=== PATIENT | female | born 2000 | race Hispanic/Latino ===

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

== ENCOUNTER 2020-04-27 03:13 | Emergency (ER) | payer MEDICAID ==
[2020-04-27 03:27] LABS: APPEARANCE,URINE Clear (CLEAR); BILIRUBIN,URINE Negative (NEGATIVE); COLOR,URINE Yellow (YELLOW); GLUCOSE, URINE (UA) Negative (NEGATIVE); KETONES,URINE 15 mg/dL (NEGATIVE); LEUKOCYTE ESTERASE ,URINE Negative (NEGATIVE); NITRATE,URINE Negative (NEGATIVE); OCCULT BLOOD,URINE Negative (NEGATIVE); PH,URINE 5.5 (5.0-8.0); PROTEIN,URINE Negative (NEGATIVE)
[2020-04-27 03:33] LABS: HCG,QUAL RESULT NEGATIVE (NEGATIVE)
[2020-04-27 03:34] LABS: AMPHET/METH SCREEN,URINE NEGATIVE (NEGATIVE); BARBITURATE SCREEN, URINE NEGATIVE (NEGATIVE); BENZODIAZEPINES SCREEN,URINE NEGATIVE (NEGATIVE); CANNABINOID SCREEN,URINE NEGATIVE (NEGATIVE); COCAINE SCREEN,URINE NEGATIVE (NEGATIVE); OPIATE SCREEN,URINE NEGATIVE (NEGATIVE); PHENCYCLIDINE SCREEN,URINE NEGATIVE (NEGATIVE)
[2020-04-27 03:40] LABS: BASOPHILS % (AUTO) 0.9 % (0.0-5.0); HEMATOCRIT 31.8 % (36-48); LYMPHOCYTES % (AUTO) 33.7 % (21.0-51.0); MEAN CORPUSCULAR HEMOGLOBIN 25.6 pg (27.0-33.0); MEAN CORPUSCULAR HGB CONC 31.1 g/dL (32.0-36.0); MEAN CORPUSCULAR VOLUME 82.2 fL (80-100); MONOCYTES % (AUTO) 4.9 % (3.0-13.0); NEUTROPHILS % (AUTO) 48.4 % (40.0-77.0); PLATELET COUNT (AUTO) 373 K/uL (130-400); RED BLOOD CELL COUNT(AUTO) 3.87 MIL/uL (4.00-5.50); RED CELL DISTRIBUTION WIDTH 15.2 % (11.0-15.5); WHITE BLOOD COUNT (AUTO) 9.1 K/uL (4.8-10.8)
[2020-04-27 03:51] LABS: CREATININE 0.4 mg/dL (0.5-1.5); POTASSIUM 3.2 mmol/L (3.5-5.1)
[2020-04-27 03:54] LABS: ALCOHOL, BLOOD < 3 mg/dL (0-10)
[2020-04-27 04:01] LABS: ACETAMINOPHEN < 1 mcg/mL (10-30); SALICYLATE < 2.8 mg/dL (2.8-20.0)
[2020-04-27] MEDS ORDERED: POTASSIUM BICARB/CIT AC 25 MEQ TABLET.EFF ONE (04:41)
== END 2020-04-27 12:56 | disposition home or self-care (01) ==
LOC: EDH 03:13
DX: R45.851 Suicidal ideations (principal); Z20.828 Contact with and (suspected) exposure to other viral communicable diseases; F31.9 Bipolar disorder, unspecified; F41.9 Anxiety disorder, unspecified; F43.10 Post-traumatic stress disorder, unspecified
CPT/HCPCS: 36415; 80048; 80305; 81003; 81025; 85025; 87426; 99285; G0481

== ENCOUNTER 2020-07-09 00:51 | Emergency (ER) | payer MEDICAID ==
[2020-07-09 01:36] LABS: EOSINOPHILS % (AUTO) 16.4 % (0.0-8.0); LYMPHOCYTES % (AUTO) 42.1 % (21.0-51.0); MEAN CORPUSCULAR HEMOGLOBIN 25.3 pg (27.0-33.0); MEAN CORPUSCULAR HGB CONC 31.3 g/dL (32.0-36.0); MEAN CORPUSCULAR VOLUME 80.8 fL (80-100); NEUTROPHILS % (AUTO) 35.5 % (40.0-77.0); PLATELET COUNT (AUTO) 482 K/uL (130-400); RED BLOOD CELL COUNT(AUTO) 3.96 MIL/uL (4.00-5.50); RED CELL DISTRIBUTION WIDTH 16.1 % (11.0-15.5); WHITE BLOOD COUNT (AUTO) 6.8 K/uL (4.8-10.8)
[2020-07-09 01:44] LABS: APPEARANCE,URINE Clear (CLEAR); BILIRUBIN,URINE Negative (NEGATIVE); COLOR,URINE Yellow (YELLOW); GLUCOSE, URINE (UA) Negative (NEGATIVE); KETONES,URINE Negative (NEGATIVE); LEUKOCYTE ESTERASE ,URINE Negative (NEGATIVE); NITRATE,URINE Negative (NEGATIVE); OCCULT BLOOD,URINE Trace (NEGATIVE); PROTEIN,URINE Negative (NEGATIVE)
[2020-07-09 01:46] LABS: CARBON DIOXIDE 26 mmol/L (21-32); CHLORIDE 103 mmol/L (101-111); CREATININE 0.6 mg/dL (0.5-1.5); GLOMERULAR FILTR. RATE CALC 134 mL/min (>60); GLUCOSE,RANDOM 93 mg/dL (70-105); POTASSIUM 3.8 mmol/L (3.5-5.1); SODIUM SERUM 139 mmol/L (136-145); UREA NITROGEN, BLOOD 8 mg/dL (7-18)
[2020-07-09 01:51] LABS: ACETAMINOPHEN 1 mcg/mL (10-30); ALANINE AMINOTRANSFERASE 18 U/L (12-78); ALBUMIN 4.3 g/dL (3.5-5.0); ASPARTATE AMINOTRANSFERASE 17 U/L (10-37); BILIRUBIN,TOTAL 0.2 mg/dL (0.2-1.0); SALICYLATE 4.3 mg/dL (2.8-20.0)
[2020-07-09 01:52] LABS: ALCOHOL, BLOOD < 3 mg/dL (0-10)
[2020-07-09 01:53] LABS: HCG,QUAL RESULT NEGATIVE (NEGATIVE)
[2020-07-09 01:55] LABS: BACTERIA,URINE Rare /HPF (None Seen); RBC,URINE 0-1 /HPF (0-1); SQUAMOUS EPITHELIAL CELL,UR 0-2 /HPF (0-2); WBC,URINE 0-1 /HPF (0-1)
[2020-07-09 02:39] LABS: AMPHET/METH SCREEN,URINE NEGATIVE (NEGATIVE); BARBITURATE SCREEN, URINE NEGATIVE (NEGATIVE); BENZODIAZEPINES SCREEN,URINE NEGATIVE (NEGATIVE); CANNABINOID SCREEN,URINE NEGATIVE (NEGATIVE); COCAINE SCREEN,URINE NEGATIVE (NEGATIVE); OPIATE SCREEN,URINE NEGATIVE (NEGATIVE); PHENCYCLIDINE SCREEN,URINE NEGATIVE (NEGATIVE)
== END 2020-07-09 06:15 | disposition home or self-care (01) ==
LOC: EDH 00:51
DX: R45.851 Suicidal ideations (principal); F32.9 Major depressive disorder, single episode, unspecified; F41.9 Anxiety disorder, unspecified

== ENCOUNTER 2020-12-21 09:47 | Emergency (ER) | payer MEDICAID ==
[~2020-12-21] VITALS: Ht 162.6 cm; Wt 54.4 kg
[2020-12-21] MEDS ORDERED: ONDANSETRON 4MG INJ IVP SCH (10:00)
[2020-12-21] MEDS ORDERED: PANTOPRAZOLE 40 MG/VIAL IVP SCH (10:00)
[2020-12-21] MEDS ORDERED: HYDROMORPHONE 0.5 MG SYG (0.5MG/0.5ML) IVP SCH (10:00)
[2020-12-21] MEDS ORDERED: ACETAMINOPHEN 500 MG TABLET PO SCH (10:00)
[2020-12-21] MEDS ORDERED: 0.9%NACL 1000ML 1,641 ML IV SCH (10:00)
[2020-12-21 10:11] LABS: APPEARANCE,URINE Cloudy (CLEAR); BILIRUBIN,URINE Small (NEGATIVE); COLOR,URINE Dark Yellow (YELLOW); GLUCOSE, URINE (UA) >=1000 mg/dL (NEGATIVE); KETONES,URINE Trace mg/dL (NEGATIVE); LEUKOCYTE ESTERASE ,URINE Negative (NEGATIVE); NITRATE,URINE Negative (NEGATIVE); OCCULT BLOOD,URINE Negative (NEGATIVE); PH,URINE 5.5 (5.0-8.0); PROTEIN,URINE POS 1+ mg/dL (NEGATIVE)
[2020-12-21 10:13] LABS: HCG,QUAL RESULT NEGATIVE (NEGATIVE)
[2020-12-21 10:15] VITALS: BP 107/60
[2020-12-21 10:20] LABS: BASOPHILS % (AUTO) 0.4 % (0.0-5.0); EOSINOPHILS % (AUTO) 0.6 % (0.0-8.0); HEMATOCRIT 33.2 % (36-48); MEAN CORPUSCULAR HGB CONC 31.3 g/dL (32.0-36.0); MEAN CORPUSCULAR VOLUME 76.5 fL (80-100); NEUTROPHILS % (AUTO) 78.8 % (40.0-77.0); PLATELET COUNT (AUTO) 223 K/uL (130-400); RED BLOOD CELL COUNT(AUTO) 4.34 MIL/uL (4.00-5.50); RED CELL DISTRIBUTION WIDTH 15.6 % (11.0-15.5); WHITE BLOOD COUNT (AUTO) 4.9 K/uL (4.8-10.8)
[2020-12-21 10:33] LABS: RBC,URINE 0-1 /HPF (0-1); WBC,URINE 0-1 /HPF (0-1)
[2020-12-21 10:34] LABS: BACTERIA,URINE Few /HPF (None Seen)
[2020-12-21 10:34] LABS: ALANINE AMINOTRANSFERASE 45 U/L (12-78); ALBUMIN 3.5 g/dL (3.5-5.0); ASPARTATE AMINOTRANSFERASE 59 U/L (10-37); BILIRUBIN,TOTAL 0.3 mg/dL (0.2-1.0); CARBON DIOXIDE 24 mmol/L (21-32); CHLORIDE 102 mmol/L (101-111); CREATININE 0.7 mg/dL (0.5-1.5); GLOMERULAR FILTR. RATE CALC 112 mL/min (>60); GLUCOSE,RANDOM 128 mg/dL (70-105); SODIUM SERUM 136 mmol/L (136-145); TOTAL PROTEIN, SERUM 7.7 g/dL (6.0-8.3); UREA NITROGEN, BLOOD 6 mg/dL (7-18)
[2020-12-21 10:39] LABS: POTASSIUM 2.9 mmol/L (3.5-5.1)
[2020-12-21 10:43] LABS: LIPASE < 50 U/L (114-286)
[2020-12-21 11:41] VITALS: BP 100/50
[2020-12-21] MEDS ORDERED: ONDA22I PO (12:15)
[2020-12-21] MEDS ORDERED: POTASSIUM PHOS 15 mMOL+NS250ML 250 ML IV SCH (12:30)
[2020-12-21 13:44] VITALS: BP 99/55
== END 2020-12-21 13:55 | disposition home or self-care (01) ==
LOC: EDH 09:47
DX: R10.13 Epigastric pain (principal); R11.2 Nausea with vomiting, unspecified; Z20.822 Contact with and (suspected) exposure to COVID-19; Z79.899 Other long term (current) drug therapy; Z98.84 Bariatric surgery status; Z87.19 Personal history of other diseases of the digestive system
CPT/HCPCS: 36415; 74176; 80053; 81001; 81025; 83605; 83690; 85025; 87040 ×2; 87088; 87635; 96361; 96374; 96375; 99285; C9803; J1170; J2405; J7030; S0164; C9113

== ENCOUNTER 2021-06-12 13:42 | Emergency (ER) | payer MEDICAID ==
[~2021-06-12] VITALS: Ht 162.6 cm; Wt 61.7 kg
[~2021-06-12 13:42] MED LIST changes: -DIATR MEGLU/DIATRIZOATE SODIUM 30 ML BOTTLE ONE; +ONDA22I PO
[2021-06-12] MEDS ORDERED: ACETAMINOPHEN 500 MG TABLET PO ONE (14:00)
[2021-06-12] MEDS ORDERED: 0.9%NACL 1000ML 1,000 ML IV SCH (14:00)
[2021-06-12] MEDS ORDERED: ONDANSETRON 4MG INJ IVP ONE (14:00)
[2021-06-12] MEDS ORDERED: MAG/ALUM/SIMETH 30 ML UDCUP PO ONE (14:00)
[2021-06-12 14:12] LABS: BASOPHILS % (AUTO) 0.6 % (0.0-5.0); EOSINOPHILS % (AUTO) 16.2 % (0.0-8.0); HEMATOCRIT 24.7 % (36-48); LYMPHOCYTES % (AUTO) 26.3 % (21.0-51.0); MEAN CORPUSCULAR HEMOGLOBIN 23.1 pg (27.0-33.0); MEAN CORPUSCULAR VOLUME 76.9 fL (79-99); NEUTROPHILS % (AUTO) 51.5 % (40.0-77.0); PLATELET COUNT (AUTO) 342 K/uL (130-400); RED BLOOD CELL COUNT(AUTO) 3.21 MIL/uL (4.00-5.50); RED CELL DISTRIBUTION WIDTH 15.5 % (11.0-15.5); WHITE BLOOD COUNT (AUTO) 7.8 K/uL (4.8-10.8)
[2021-06-12 14:21] LABS: APPEARANCE,URINE Cloudy (CLEAR); BILIRUBIN,URINE Negative (NEGATIVE); COLOR,URINE Yellow (YELLOW); GLUCOSE, URINE (UA) TRACE mg/dL (NEGATIVE); KETONES,URINE Trace mg/dL (NEGATIVE); LEUKOCYTE ESTERASE ,URINE Small (NEGATIVE); NITRATE,URINE Negative (NEGATIVE); OCCULT BLOOD,URINE Negative (NEGATIVE); PROTEIN,URINE Trace mg/dL (NEGATIVE)
[2021-06-12 14:27] LABS: CARBON DIOXIDE 24 mmol/L (21-32); CHLORIDE 102 mmol/L (101-111); CREATININE 0.4 mg/dL (0.5-1.5); GLOMERULAR FILTR. RATE CALC 212 mL/min (>60); GLUCOSE,RANDOM 87 mg/dL (70-105); POTASSIUM 3.3 mmol/L (3.5-5.1); SODIUM SERUM 136 mmol/L (136-145); UREA NITROGEN, BLOOD 7 mg/dL (7-18)
[2021-06-12 14:52] LABS: ALANINE AMINOTRANSFERASE 16 U/L (12-78); ALBUMIN 3.1 g/dL (3.5-5.0); ASPARTATE AMINOTRANSFERASE 15 U/L (10-37); BILIRUBIN,TOTAL 0.3 mg/dL (0.2-1.0); HCG,QUANTITATIVE 26791 mIU/mL (0-5); TOTAL PROTEIN, SERUM 6.7 g/dL (6.0-8.3)
[2021-06-12] MEDS ORDERED: POTASSIUM BICARB/CIT AC 25 MEQ TABLET.EFF PO ONE (15:00)
[2021-06-12] MEDS ORDERED: DICYCLOMINE 20MG (10MG/ML) AMP IM STA (15:08)
[2021-06-12 15:12] LABS: BACTERIA,URINE Few /HPF (None Seen); MUCUS,URINE Moderate LPF (None Seen); SQUAMOUS EPITHELIAL CELL,UR Moderate /HPF (0-2)
[2021-06-12 15:16] LABS: CRP QUANTITATIVE < 2.00 mg/L (0.00-9.0); LIPASE < 50 U/L (114-286)
[2021-06-12] MEDS ORDERED: DICYCLOMINE 20MG (10MG/ML) AMP IM ONE (15:21)
[2021-06-12] MEDS ORDERED: CEFTRIAXONE 1G VIAL ONE (15:57)
[2021-06-12] MEDS ORDERED: CEFTRIAXONE 1G VIAL IVP ONE (16:00)
[2021-06-12] MEDS ORDERED: CEPH500B PO (16:21)
[2021-06-12] MEDS ORDERED: DICY20TA2 PO (16:21)
[2021-06-12 16:32] VITALS: BP 105/60
== END 2021-06-12 16:28 | disposition home or self-care (01) ==
LOC: EDH 13:42
DX: O23.42 Unspecified infection of urinary tract in pregnancy, second trimester (principal); O99.612 Diseases of the digestive system complicating pregnancy, second trimester; K29.70 Gastritis, unspecified, without bleeding; Z79.899 Other long term (current) drug therapy; Z3A.19 19 weeks gestation of pregnancy
CPT/HCPCS: 36415; 80053; 81001; 83690; 84702; 85025; 86140; 96361; 96372; 96374; 96375; 99284; J0500; J0696; J2405

== ENCOUNTER 2021-08-26 04:32 | Observation (INO) | payer MEDICAID ==
[~2021-08-26] VITALS: Ht 152.4 cm; Wt 68.0 kg
[~2021-08-26 04:32] MED LIST changes: +CEPH500B PO; +DICY20TA2 PO
[2021-08-26] MEDS ORDERED: ONDANSETRON 4MG INJ ONE (05:19)
[2021-08-26] MEDS ORDERED: MORPHINE 2 MG SYG ONE (05:19)
[2021-08-26] MEDS ORDERED: ONDANSETRON 4MG INJ IVP ONE (05:30)
[2021-08-26] MEDS ORDERED: MORPHINE 2 MG SYG IVP ONE (05:30)
[2021-08-26 05:58] LABS: AMYLASE 72 U/L (25-115)
[2021-08-26 06:02] LABS: CREATININE 0.4 mg/dL (0.5-1.5); LIPASE 41 U/L (114-286); POTASSIUM 3.7 mmol/L (3.5-5.1)
[2021-08-26 06:06] LABS: ALBUMIN 2.8 g/dL (3.5-5.0); BILIRUBIN,TOTAL 0.4 mg/dL (0.2-1.0); TOTAL PROTEIN, SERUM 6.3 g/dL (6.0-8.3)
[2021-08-26 06:14] LABS: APPEARANCE,URINE CLEAR (CLEAR); BILIRUBIN,URINE NEGATIVE (NEGATIVE); COLOR,URINE YELLOW (YELLOW); GLUCOSE, URINE (UA) NEGATIVE (NEGATIVE); KETONES,URINE >=80 mg/dL (NEGATIVE); LEUKOCYTE ESTERASE ,URINE NEGATIVE (NEGATIVE); NITRATE,URINE NEGATIVE (NEGATIVE); OCCULT BLOOD,URINE NEGATIVE (NEGATIVE); PROTEIN,URINE NEGATIVE (NEGATIVE); UROBILINOGEN,URINE 0.2 mg/dL (0.2-1.0)
[2021-08-26 06:23] LABS: AMPHET/METH SCREEN,URINE NEGATIVE (NEGATIVE); BACTERIA,URINE Rare /HPF (None Seen); BARBITURATE SCREEN, URINE NEGATIVE (NEGATIVE); BENZODIAZEPINES SCREEN,URINE NEGATIVE (NEGATIVE); CANNABINOID SCREEN,URINE NEGATIVE (NEGATIVE); COCAINE SCREEN,URINE NEGATIVE (NEGATIVE); OPIATE SCREEN,URINE NEGATIVE (NEGATIVE); PHENCYCLIDINE SCREEN,URINE NEGATIVE (NEGATIVE); RBC,URINE None Seen /HPF (0-1); SQUAMOUS EPITHELIAL CELL,UR Few /HPF (0-2); WBC,URINE 0-1 /HPF (0-1)
[2021-08-26] MEDS ORDERED: CELESTONE SOLUSPAN 6 MG/ML 5ML VIAL ONE (06:37)
[2021-08-26] MEDS ORDERED: MAGNESIUM SULFATE 40 GM/1000 ML IV ONE (06:37)
[2021-08-26] MEDS ORDERED: MAGNESIUM 4GM PREMIX 100ML 100 ML IV ONE (06:37)
[2021-08-26] MEDS ORDERED: LABETALOL 20MG VIAL IV ONE (06:40)
[2021-08-26] MEDS: CELESTONE SOLUSPAN 6 MG/ML 5ML VIAL IM SCH (06:51)
[2021-08-26 06:59] LABS: BILIRUBIN,DIRECT 0.1 mg/dL (0.0-0.3); MAGNESIUM 1.9 mg/dL (1.80-2.40); URIC ACID 2.6 mg/dL (2.6-7.2)
[2021-08-26] MEDS ORDERED: MAGNESIUM 4GM PREMIX 100ML 100 ML IV PRN (07:00)
[2021-08-26] MEDS ORDERED: CALCIUM GLUC 1GM/10ML VIAL IV PRN (07:00)
[2021-08-26] MEDS ORDERED: MAGNESIUM SULFATE 40GM/1000ML 1,000 ML IV PRN (07:00)
[2021-08-26] MEDS ORDERED: LACTATED RINGERS 1000ML 1,000 ML IV SCH (07:00)
[2021-08-26] MEDS ORDERED: LABETALOL 20MG SYG IV ONE (07:00)
[2021-08-26] MEDS: LACTATED RINGERS 1000ML 1,000 ML IV SCH ×3 (07:51→21:30)
[2021-08-26 07:58] LABS: INR 0.95 (0.85-1.15); PROTHROMBIN TIME 10.4 SEC (9.6-11.6)
[2021-08-26 07:59] LABS: PARTIAL THROMBOPLASTIN TIME 23.1 SEC (26.3-35.5)
[2021-08-26] MEDS ORDERED: PHARMACY COMMUNICATION MISC PRN (08:00)
[2021-08-26] MEDS ORDERED: LABETALOL 20MG SYG IV PRN ×3 (08:00→08:30)
[2021-08-26 08:05] VITALS: BP 126/88
[2021-08-26] MEDS ORDERED: PHARMACY COMMUNICATION MISC SCH (08:30)
[2021-08-26] MEDS: AMP/SULBAC 3GM+NS 100ML 100 ML IV SCH ×4 (09:06→23:05)
[2021-08-26 09:54] LABS: BASOPHILS % (AUTO) 0.3 % (0.0-5.0); HEMATOCRIT 25.3 % (36-48); LYMPHOCYTES % (AUTO) 8.7 % (21.0-51.0); MEAN CORPUSCULAR HEMOGLOBIN 23.3 pg (27.0-33.0); MEAN CORPUSCULAR HGB CONC 30.4 g/dL (32.0-36.0); MEAN CORPUSCULAR VOLUME 76.4 fL (79-99); MONOCYTES % (AUTO) 1.4 % (3.0-13.0); NEUTROPHILS % (AUTO) 88.7 % (40.0-77.0); PLATELET COUNT (AUTO) 346 K/uL (130-400); RED BLOOD CELL COUNT(AUTO) 3.31 MIL/uL (4.00-5.50); RED CELL DISTRIBUTION WIDTH 19.7 % (11.0-15.5); WHITE BLOOD COUNT (AUTO) 11.6 K/uL (4.8-10.8)
[2021-08-26] MEDS ORDERED: MORPHINE 2 MG SYG IVP PRN (10:00)
[2021-08-26 10:02] LABS: HEMOGLOBIN A1C 5.9 % (4.0-6.0)
[2021-08-26] MEDS: SUCRALFATE 1 GM TABLET PO SCH (20:28)
[2021-08-26] MEDS: FAMOTIDINE 20MG TAB PO SCH (20:29)
[2021-08-26] MEDS ORDERED: OLANZAPINE 5 MG TAB PO SCH (22:00)
[2021-08-26] MEDS ORDERED: ACET-2041 PO (23:04)
[2021-08-26] MEDS ORDERED: IBUP-2784 PO (23:04)
[2021-08-26] MEDS ORDERED: OLAN2.5T3 PO (23:04)
[2021-08-27] MEDS: SUCRALFATE 1 GM TABLET PO SCH ×3 (01:37→12:42)
[2021-08-27] MEDS: AMP/SULBAC 3GM+NS 100ML 100 ML IV SCH (03:49)
[2021-08-27] MEDS: LACTATED RINGERS 1000ML 1,000 ML IV SCH (03:49)
[2021-08-27 04:23] LABS: BASOPHILS % (AUTO) 0.2 % (0.0-5.0); EOSINOPHILS % (AUTO) 0.1 % (0.0-8.0); HEMATOCRIT 23.5 % (36-48); LYMPHOCYTES % (AUTO) 15.5 % (21.0-51.0); MEAN CORPUSCULAR HEMOGLOBIN 23.8 pg (27.0-33.0); MEAN CORPUSCULAR HGB CONC 30.2 g/dL (32.0-36.0); MEAN CORPUSCULAR VOLUME 78.9 fL (79-99); MONOCYTES % (AUTO) 7.2 % (3.0-13.0); NEUTROPHILS % (AUTO) 76.2 % (40.0-77.0); NUCLEATED RED BLOOD CELLS 0.3 % (0.0-0.19); PLATELET COUNT (AUTO) 349 K/uL (130-400); RED BLOOD CELL COUNT(AUTO) 2.98 MIL/uL (4.00-5.50); RED CELL DISTRIBUTION WIDTH 20.1 % (11.0-15.5); WHITE BLOOD COUNT (AUTO) 11.9 K/uL (4.8-10.8)
[2021-08-27 04:30] LABS: ALBUMIN 2.5 g/dL (3.5-5.0); BILIRUBIN,TOTAL 0.5 mg/dL (0.2-1.0); CREATININE 0.3 mg/dL (0.5-1.5); POTASSIUM 4.1 mmol/L (3.5-5.1); TOTAL PROTEIN, SERUM 6.1 g/dL (6.0-8.3)
[2021-08-27] MEDS: CELESTONE SOLUSPAN 6 MG/ML 5ML VIAL IM SCH (06:58)
[2021-08-27 07:45] VITALS: BP 119/55
[2021-08-27] MEDS: FAMOTIDINE 20MG TAB PO SCH (08:51)
[2021-08-27] MEDS ORDERED: AMP/SULBAC 3GM+NS 100ML IV SCH (09:00)
[2021-08-27] MEDS ORDERED: AMP/SULBAC 3GM+NS 100ML 100 ML IV SCH ×2 (09:30→12:00)
[2021-08-27 11:41] VITALS: BP 112/60
[2021-08-27] MEDS ORDERED: DIPH,PERTUSS(ACELL),TET VAC/PF 0.5 ML VIAL IM ONE (14:30)
[2021-08-27] MEDS ORDERED: FLU VACC QS2021-22(6MOS UP)/PF 60 MCG/0.5 ML ML IM ONE (15:00)
[2021-08-27 15:45] VITALS: BP 110/55
== END 2021-08-27 16:00 | disposition home or self-care (01) ==
LOC: EDH 04:32 → LDH 04:47 → WSH 08-27 06:10
PROVIDERS: ADMIT Internal Medicine; ATTEND Internal Medicine
DX: O26.613 Liver and biliary tract disorders in pregnancy, third trimester (principal); K80.80 Other cholelithiasis without obstruction; O99.283 Endocrine, nutritional and metabolic diseases complicating pregnancy, third trimester; E87.2 Acidosis; O99.613 Diseases of the digestive system complicating pregnancy, third trimester; K80.20 Calculus of gallbladder without cholecystitis without obstruction; O26.893 Other specified pregnancy related conditions, third trimester; R10.11 Right upper quadrant pain; O21.2 Late vomiting of pregnancy; R10.13 Epigastric pain; O99.843 Bariatric surgery status complicating pregnancy, third trimester; Z3A.30 30 weeks gestation of pregnancy; Z23 Encounter for immunization; Z71.85 Encounter for immunization safety counseling; Z79.899 Other long term (current) drug therapy; Z98.890 Other specified postprocedural states
CPT/HCPCS: 36415 ×2; 76700; 80053 ×2; 80305; 81001; 82044; 82150; 82248; 83036; 83690 ×2; 83735; 84145; 84550; 85025 ×2; 85370; 85378; 85384; 85610; 85730; 86140; 86850; 86900; 86901; 90471; 90658; 96365; 96366 ×3; 96367; 96368; 96372 ×2; 96375; G0378 ×35; G0379; J0295 ×3; J0702 ×2; J2405; J3475; J3490; J7120; 96361; Q2035

== ENCOUNTER 2022-01-14 16:23 | Observation (INO) | payer MEDICAID ==
[~2022-01-14] VITALS: Ht 162.6 cm; Wt 64.6 kg
[~2022-01-14 16:23] MED LIST changes: +ACET-2079 PO; -CEPH500B PO; -DICY20TA2 PO; +FERS325 PO; +IBUP-2070 PO; +OLAN2.5T3 PO; -ONDA22I PO
[2022-01-14] MEDS ORDERED: KETOROLAC 30MG VIAL (30MG/ML) IVP ONE (18:00)
[2022-01-14] MEDS ORDERED: ONDANSETRON 4MG INJ IVP ONE (18:00)
[2022-01-14] MEDS ORDERED: LACTATED RINGERS 1000ML 1,000 ML IV ONE (18:00)
[2022-01-14 18:25] LABS: BASOPHILS % (AUTO) 0.8 % (0.0-5.0); EOSINOPHILS % (AUTO) 2.2 % (0.0-8.0); HEMATOCRIT 37.7 % (36-48); LYMPHOCYTES % (AUTO) 40.4 % (21.0-51.0); MEAN CORPUSCULAR HEMOGLOBIN 25.9 pg (27.0-33.0); MEAN CORPUSCULAR HGB CONC 31.8 g/dL (32.0-36.0); MEAN CORPUSCULAR VOLUME 81.4 fL (79-99); MONOCYTES % (AUTO) 6.6 % (3.0-13.0); NEUTROPHILS % (AUTO) 49.9 % (40.0-77.0); PLATELET COUNT (AUTO) 410 K/uL (130-400); RED BLOOD CELL COUNT(AUTO) 4.63 MIL/uL (4.00-5.50); RED CELL DISTRIBUTION WIDTH 18.6 % (11.0-15.5); WHITE BLOOD COUNT (AUTO) 7.6 K/uL (4.8-10.8)
[2022-01-14 18:26] LABS: APPEARANCE,URINE Clear (CLEAR); BILIRUBIN,URINE Negative (NEGATIVE); COLOR,URINE Yellow (YELLOW); GLUCOSE, URINE (UA) Negative (NEGATIVE); KETONES,URINE Negative (NEGATIVE); LEUKOCYTE ESTERASE ,URINE Negative (NEGATIVE); NITRATE,URINE Negative (NEGATIVE); OCCULT BLOOD,URINE Negative (NEGATIVE); PH,URINE 7.5 (5.0-8.0); PROTEIN,URINE Negative (NEGATIVE)
[2022-01-14 18:32] LABS: HCG,QUALITATIVE URINE NEGATIVE (NEGATIVE)
[2022-01-14 18:34] LABS: CREATININE 0.6 mg/dL (0.5-1.5); POTASSIUM 4.1 mmol/L (3.5-5.1)
[2022-01-14 18:38] LABS: ALBUMIN 4.1 g/dL (3.5-5.0); TOTAL PROTEIN, SERUM 7.5 g/dL (6.0-8.3)
[2022-01-14] MEDS ORDERED: 0.9%NACL 1000ML 1,000 ML IV SCH (21:00)
[2022-01-14] MEDS ORDERED: ZOSYN 3.375GM +NS 50ML IV SCH (21:00)
[2022-01-14] MEDS ORDERED: ONDANSETRON 4MG INJ IVP PRN ×2 (21:00→22:00)
[2022-01-14] MEDS: 0.9%NACL 1000ML 1,000 ML IV SCH (21:44)
[2022-01-14] MEDS: ZOSYN 3.375GM +NS 50ML IV SCH (22:00)
[2022-01-14] MEDS ORDERED: MORPHINE 2 MG SYG IVP PRN (22:00)
[2022-01-14] MEDS ORDERED: LABETALOL 20MG SYG IV PRN (22:00)
[2022-01-14] MEDS ORDERED: TEMAZEPAM 15 MG CAPSULE PO PRN (22:00)
[2022-01-14] MEDS ORDERED: HYDRALAZINE 20MG/ML VIAL IV PRN (22:00)
[2022-01-14 23:40] VITALS: BP 145/98
[2022-01-15] MEDS ORDERED: FAMO-136 PO (00:25)
[2022-01-15] MEDS ORDERED: ONDA22I IM (00:25)
[2022-01-15 01:44] LABS: AMPHET/METH SCREEN,URINE NEGATIVE (NEGATIVE); BARBITURATE SCREEN, URINE NEGATIVE (NEGATIVE); BENZODIAZEPINES SCREEN,URINE NEGATIVE (NEGATIVE); CANNABINOID SCREEN,URINE POSITIVE (NEGATIVE); COCAINE SCREEN,URINE NEGATIVE (NEGATIVE); PHENCYCLIDINE SCREEN,URINE NEGATIVE (NEGATIVE)
[2022-01-15 04:00] VITALS: BP 108/69
[2022-01-15 05:02] LABS: HEMATOCRIT 31.1 % (36-48); MEAN CORPUSCULAR HEMOGLOBIN 26.1 pg (27.0-33.0); MEAN CORPUSCULAR HGB CONC 32.2 g/dL (32.0-36.0); MEAN CORPUSCULAR VOLUME 81.2 fL (79-99); RED BLOOD CELL COUNT(AUTO) 3.83 MIL/uL (4.00-5.50); RED CELL DISTRIBUTION WIDTH 18.6 % (11.0-15.5); WHITE BLOOD COUNT (AUTO) 7.4 K/uL (4.8-10.8)
[2022-01-15 05:12] LABS: INR 1.08 (0.85-1.15); PROTHROMBIN TIME 11.7 SEC (9.6-11.6)
[2022-01-15 05:19] LABS: ALBUMIN 3.3 g/dL (3.5-5.0); BILIRUBIN,DIRECT 0.1 mg/dL (0.0-0.3); CREATININE 0.7 mg/dL (0.5-1.5); PHOSPHORUS 5.2 mg/dL (2.5-4.9); POTASSIUM 3.6 mmol/L (3.5-5.1); TOTAL PROTEIN, SERUM 6.2 g/dL (6.0-8.3)
[2022-01-15] MEDS: ZOSYN 3.375GM +NS 50ML IV SCH (05:44)
[2022-01-15] MEDS: 0.9%NACL 1000ML 1,000 ML IV SCH (05:44)
[2022-01-15] MEDS: INSULIN HUMULIN R 100 UNIT/ML 3ML SQ SCH ×2 (06:15→11:30)
[2022-01-15 07:30] VITALS: BP 109/69
[2022-01-15] MEDS ORDERED: DRONABINOL 2.5 MG CAP PO SCH (09:00)
[2022-01-15] MEDS ORDERED: PANTOPRAZOLE 40 MG/VIAL IVP SCH (09:00)
[2022-01-15] MEDS ORDERED: ONDANSETRON 4MG INJ IVP SCH (09:30)
[2022-01-15] MEDS ORDERED: LORAZEPAM 2 MG/ML 1 ML VIAL IM ONE ×2 (09:30)
[2022-01-15 11:00] VITALS: BP 99/61
[2022-01-17 10:13] LABS: OPIATES SCREEN URINE Negative ng/mL (Cutoff=300)
== END 2022-01-15 16:48 | disposition home or self-care (01) ==
LOC: EDH 16:23 → EDHIP 16:24 → 4BH 01-15 00:48
PROVIDERS: ADMIT Internal Medicine Pulmonary Disease; ATTEND Internal Medicine Pulmonary Disease
DX: K80.20 Calculus of gallbladder without cholecystitis without obstruction (principal); K76.0 Fatty (change of) liver, not elsewhere classified; D75.838 Other thrombocytosis; F12.23 Cannabis dependence with withdrawal; Z98.84 Bariatric surgery status; Z79.899 Other long term (current) drug therapy
CPT/HCPCS: 96361 ×2; 96365; 96366 ×2; 96375 ×2; 99284; 80053; 80305; 83690; 85025; 81003; 81025; 36415 ×2; 76705; 80076; 83735; 84100; 80048; 85027; 85610; 82948; 74150; G0378 ×19; J7120; J7030 ×2; J2405 ×2; J1885; J2543 ×2; S0164; C9113

== ENCOUNTER 2023-04-30 16:13 | Emergency (ER) | payer MEDICAID ==
[~2023-04-30] VITALS: Ht 162.6 cm; Wt 62.1 kg
[~2023-04-30 16:13] MED LIST changes: -ACET-2079 PO; +FAMO-136 PO; -IBUP-2070 PO; +ONDA22I IM
[2023-04-30 16:42] LABS: BASOPHILS # (AUTO) 0.05 K/uL (0.00-0.20); BASOPHILS % (AUTO) 0.7 % (0.0-5.0); EOSINOPHILS # (AUTO) 0.08 K/uL (0.00-0.70); EOSINOPHILS % (AUTO) 1.1 % (0.0-8.0); HEMATOCRIT 36.8 % (36-48); IMMATURE GRANULOCYTE ABSOLUTE 0.01 K/uL (0-1); LYMPHOCYTES % (AUTO) 39.8 % (21.0-51.0); MEAN CORPUSCULAR HEMOGLOBIN 28.4 pg (27.0-33.0); MEAN CORPUSCULAR HGB CONC 32.6 g/dL (32.0-36.0); MONOCYTES # (AUTO) 0.2 K/uL (0.1-1.0); MONOCYTES % (AUTO) 2.7 % (3.0-13.0); NEUTROPHILS # (AUTO) 4.1 K/uL (1.8-7.7); NEUTROPHILS % (AUTO) 55.6 % (40.0-77.0); PLATELET COUNT (AUTO) 390 K/uL (130-400); RED BLOOD CELL COUNT(AUTO) 4.23 MIL/uL (4.00-5.50); RED CELL DISTRIBUTION WIDTH 14.8 % (11.0-15.5); WHITE BLOOD COUNT (AUTO) 7.4 K/uL (4.8-10.8)
[2023-04-30 16:58] LABS: BILIRUBIN,TOTAL 0.2 mg/dL (0.2-1.0); CREATININE 0.7 mg/dL (0.5-1.5); TOTAL PROTEIN, SERUM 7.9 g/dL (6.0-8.3)
[2023-04-30 16:59] LABS: HCG,QUALITATIVE URINE NEGATIVE (NEGATIVE)
[2023-04-30 17:01] LABS: APPEARANCE,URINE CLEAR (CLEAR); BILIRUBIN,URINE NEGATIVE (NEGATIVE); COLOR,URINE LIGHT-YELLOW (YELLOW); GLUCOSE, URINE (UA) >=1000 mg/dL (NEGATIVE); KETONES,URINE NEGATIVE (NEGATIVE); LEUKOCYTE ESTERASE ,URINE NEGATIVE Leu/uL (NEGATIVE); NITRATE,URINE NEGATIVE (NEGATIVE); OCCULT BLOOD,URINE NEGATIVE (NEGATIVE); PROTEIN,URINE NEGATIVE (NEGATIVE); UROBILINOGEN,URINE 0.2 mg/dL (0.2-1.0)
[2023-04-30 17:03] LABS: ADD UA MICROSCOPIC YES
[2023-04-30 17:05] LABS: BACTERIA,URINE RARE /HPF (None Seen); SQUAMOUS EPITHELIAL CELL,UR FEW /HPF (0-2)
[2023-04-30] MEDS ORDERED: PROMETHAZINE HCL 25 MG/ML 1ML AMPULE IM ONE (18:00)
[2023-04-30] MEDS ORDERED: PANTOPRAZOLE 40 MG/VIAL IVP ONE (18:00)
[2023-04-30] MEDS ORDERED: 0.9%NACL 1000ML 1,000 ML IV ONE (18:00)
[2023-04-30] MEDS ORDERED: POTASSIUM BICARB/CIT AC 25 MEQ TABLET.EFF PO ONE (19:30)
[2023-04-30 19:38] VITALS: BP 118/69; PULSE 61; RESP 17; O2SAT 99
[2023-04-30] MEDS ORDERED: METO-296 PO (21:48)
[2023-04-30] MEDS ORDERED: PANT40TA PO (21:48)
== END 2023-04-30 21:58 | disposition home or self-care (01) ==
LOC: EDH 16:13
DX: K21.9 Gastro-esophageal reflux disease without esophagitis (principal); E87.6 Hypokalemia
CPT/HCPCS: 99284; 96374; 96361; 80053; 83690; 85025; 81001; 81025; 36415; 96372; J7030; J2550; S0164; C9113

== ENCOUNTER → 2023-09-12 | Outpatient (CLI) | payer MEDICAID ==
[~2023-09-12] MED LIST changes: +AMIT10TA6 PO; +DICY10CA2 PO; -FAMO-136 PO; -FERS325 PO; +FLUO10CA24 PO; +METO5TAB2 PO; -OLAN2.5T3 PO; -ONDA22I IM; +PANT40TA PO
== END | disposition home or self-care (01) ==
LOC: RAH 08:56
PROVIDERS: ATTEND Pediatrics
DX: R11.0 Nausea (principal); E61.1 Iron deficiency; Z98.84 Bariatric surgery status
CPT/HCPCS: 74240

== ENCOUNTER 2023-10-09 06:30 | Day surgery (SDC) | payer MEDICAID ==
[2023-10-09] VITALS (13 sets, daily range): BP systolic 88–117; BP diastolic 52–80; PULSE 52–68; RESP 14–21
[~2023-10-09] VITALS: Ht 162.6 cm; Wt 56.7 kg
[~2023-10-09 06:30] MED LIST changes: +ERGO500093 PO; +LINA72CA PO; +PROCTOCM PR; +SUCR1TAB2 PO
[2023-10-09] MEDS: 0.9%NACL 1000ML 1,000 ML IV ONE (07:52)
[2023-10-09] MEDS ORDERED: PROPOFOL 10 MG/ML 20ML VIAL IV ONE ×2 (08:17→08:24)
[2023-10-09] MEDS ORDERED: LIDOCAINE PF 100MG/5ML (2%) SYRINGE 5ML ONE (08:17)
== END 2023-10-09 10:30 | disposition home or self-care (01) ==
LOC: ENDO 06:30 → DAH 06:30 → ENDO 10:30
PROVIDERS: ATTEND Surgery
DX: R10.13 Epigastric pain (principal); K29.50 Unspecified chronic gastritis without bleeding; K21.00 Gastro-esophageal reflux disease with esophagitis, without bleeding; K22.89 Other specified disease of esophagus; K44.9 Diaphragmatic hernia without obstruction or gangrene; K31.89 Other diseases of stomach and duodenum; K91.1 Postgastric surgery syndromes; R11.0 Nausea; E61.1 Iron deficiency; F32.A Depression, unspecified; E55.9 Vitamin D deficiency, unspecified; Z79.01 Long term (current) use of anticoagulants; Z82.61 Family history of arthritis; Z98.84 Bariatric surgery status; Z90.49 Acquired absence of other specified parts of digestive tract
CPT/HCPCS: 81025; 43239; J7030 ×2; J3490 ×3; A4215; A4223; A7002; A4222; A4221; A4663; A4606; J2001; J2704

== ENCOUNTER 2024-03-13 05:47 | Day surgery (SDC) | payer MEDICAID ==
[2024-03-13] VITALS (13 sets, daily range): BP systolic 97–116; BP diastolic 55–85; PULSE 72–95; RESP 14–18; TEMP 97.3–97.7
[~2024-03-13] VITALS: Ht 162.6 cm; Wt 63.5 kg
[~2024-03-13 05:47] MED LIST changes: -DICY10CA2 PO; -ERGO500093 PO; +FLUO-341 PO; -FLUO10CA24 PO; -LINA72CA PO; -METO5TAB2 PO; -PROCTOCM PR; +PROM25TA7 PO; -SUCR1TAB2 PO
[2024-03-13] MEDS: 0.9%NACL 1000ML 1,000 ML IV ONE (07:03)
[2024-03-13] MEDS ORDERED: proPOFol 10 MG/ML 20ML VIAL IV ONE (08:26)
== END 2024-03-13 10:10 | disposition home or self-care (01) ==
LOC: ENDO 05:47 → DAH 05:47 → ENDO 10:10
PROVIDERS: ATTEND Surgery
DX: K30 Functional dyspepsia (principal); K29.50 Unspecified chronic gastritis without bleeding; K22.89 Other specified disease of esophagus; K44.9 Diaphragmatic hernia without obstruction or gangrene; R06.09 Other forms of dyspnea; R14.0 Abdominal distension (gaseous); K91.1 Postgastric surgery syndromes; K21.9 Gastro-esophageal reflux disease without esophagitis; K64.9 Unspecified hemorrhoids; Z90.49 Acquired absence of other specified parts of digestive tract; F32.A Depression, unspecified; Z98.84 Bariatric surgery status; Z79.899 Other long term (current) drug therapy
CPT/HCPCS: 43239; 81025; J7030 ×2; J3490; A4620; A4215 ×2; A4223; A4657; A4222; A4221; A4663; A4606; J2704

== ENCOUNTER → 2025-03-04 | Outpatient (CLI) | payer BC, MEDICAID ==
[~2025-03-04] MED LIST changes: +AMIT10TA13 PO; -AMIT10TA6 PO; +IOHEXOL-350 75 ML VIAL IV ONE
--- NOTE | 2025-03-05 07:11 | HMCIMG ---
EXAM: CT Abdomen and Pelvis with IV contrast CLINICAL HISTORY: NAUSEA, POST GASTRIC SURGERY SYNDROMES TECHNIQUE: Axial computed tomography images of the abdomen and pelvis with intravenous contrast. CONTRAST: with intravenous contrast. COMPARISON: Study dated 01/15/22. FINDINGS: LUNG BASES: Please see the report for the CT of the thorax which is dictated separately. LIVER: The liver is enlarged, and the right lobe of the liver measures 16.5 cm. GALLBLADDER AND BILE DUCTS: Post cholecystectomhy status. No biliary ductal dilatation is evident. PANCREAS: Unremarkable. SPLEEN: Unremarkable. ADRENAL GLANDS: Unremarkable. KIDNEYS, URETERS, AND BLADDER: The kidneys appear within normal limits. There is no hydronephrosis or hydroureter. No urinary calculi are seen. STOMACH AND BOWEL: Post-gastric surgery status. No bowel obstruction or inflammation. PERITONEUM: No free fluid. No free air. LYMPH NODES: No lymphadenopathy is evident. REPRODUCTIVE: The uterus is retroverted. VASCULATURE: No evidence of abdominal aortic aneurysm. BONES: No aggressive appearing osseous lesion. No acute osseous pathology is evident. IMPRESSION: 1. No acute intraabdominal or pelvic findings. /[place]
== END | disposition home or self-care (01) ==
LOC: RAH 01-19 07:46
PROVIDERS: ATTEND Surgery
DX: N85.4 Malposition of uterus (principal); K91.1 Postgastric surgery syndromes; R16.0 Hepatomegaly, not elsewhere classified; R11.0 Nausea; Z90.49 Acquired absence of other specified parts of digestive tract
CPT/HCPCS: 74177; Q9967

== ENCOUNTER 2025-05-19 05:57 | Day surgery (SDC) | payer BC, MEDICAID ==
[2025-05-19] VITALS (11 sets, daily range): BP systolic 92–110; BP diastolic 55–72; PULSE 67–82; RESP 14–18; TEMP 97.2–98.2
[~2025-05-19] VITALS: Ht 162.6 cm; Wt 63.5 kg
[~2025-05-19 05:57] MED LIST changes: -IOHEXOL-350 75 ML VIAL IV ONE
[2025-05-19] MEDS: 0.9%NACL 1000ML 1,000 ML IV ONE (06:42)
[2025-05-19] MEDS ORDERED: GLYCOPYRROLATE 0.2 MG/ML 5 ML VIAL ONE (07:14)
[2025-05-19] MEDS ORDERED: SIMETHICONE 40 MG/0.6 ML ML ONE (08:17)
== END 2025-05-19 09:25 | disposition home or self-care (01) ==
LOC: ENDO 05:57 → DAH 05:57 → ENDO 09:25
PROVIDERS: ATTEND Surgery
DX: R10.13 Epigastric pain (principal); K29.50 Unspecified chronic gastritis without bleeding; K21.00 Gastro-esophageal reflux disease with esophagitis, without bleeding; K31.A0 Gastric intestinal metaplasia, unspecified; K31.89 Other diseases of stomach and duodenum; K44.9 Diaphragmatic hernia without obstruction or gangrene; F32.A Depression, unspecified; Z98.84 Bariatric surgery status; Z90.49 Acquired absence of other specified parts of digestive tract; Z79.899 Other long term (current) drug therapy; Z98.890 Other specified postprocedural states
CPT/HCPCS: 81025; 43239; J7030; J2704; J3490; A4620; A4215 ×2; A4223; A4222; A4221; A4663; A4606